=== PATIENT | female | born 1985 | race Caucasian/White ===

== ENCOUNTER 2021-05-29 06:28 | Emergency (ER) | payer OTHER ==
[~2021-05-29] VITALS: Ht 152.4 cm; Wt 68.0 kg
[2021-05-29 06:36] VITALS: BP 143/100
--- NOTE | 2021-05-29 06:39 | NUR ---
John miller in [facility] - 05/29/21 at 0640 by CHANI PT TAKEN TO BED 11
--- NOTE | 2021-05-29 06:40 | NUR ---
PT TAKEN TO ER BED 11
[2021-05-29] MEDS ORDERED: MORPHINE SULFATE 4 MG/ML SYR IM ONE (06:45)
--- NOTE | 2021-05-29 06:45 | NUR ---
RECEIVED IN BED 11 WITH C/O DENTAL PAIN SINCE LAST NIGHT, PT UNABLE TO IDENTIFY LOCATION. IS TEARFUL, "THIS IS THE WORST TOOTH PAIN I HAVE EVER HAD"
--- NOTE | 2021-05-29 06:45 | NUR ---
Dr. Vega examining patient.
[2021-05-29] MEDS ORDERED: IBUP-2213 PO (06:51)
[2021-05-29] MEDS ORDERED: ACET-8386 PO (06:51)
[2021-05-29 06:55] VITALS: BP 143/100
--- NOTE | 2021-05-29 06:55 | NUR ---
Patient discharged with v/s stable. Written and verbal after care instructions given and explained. Patient alert, oriented and verbalized understanding of instructions. Ambulatory with steady gait. All questions addressed prior to discharge. ID band removed. Patient advised to follow up with PMD. Rx of VICODIN, IBUPROFEN given. Patient educated on indication of medication including possible reaction and side effects. Opportunity to ask questions provided and answered.
== END 2021-05-29 06:55 | disposition home or self-care (01) ==
LOC: MED 06:28
DX: K08.89 Other specified disorders of teeth and supporting structures (principal)
CPT/HCPCS: 96372; 99283; J2270

== ENCOUNTER 2022-03-07 20:04 | Emergency (ER) | payer OTHER ==
[~2022-03-07] VITALS: Ht 152.4 cm; Wt 68.9 kg
[~2022-03-07 20:04] MED LIST: ACET-8386 PO; IBUP-2213 PO
[2022-03-07 20:29] VITALS: BP 137/77
--- NOTE | 2022-03-07 22:46 | NUR ---
Patient ambulated to bed 12.
[2022-03-07 22:57] LABS: APPEARANCE,URINE CLEAR (CLEAR); BILIRUBIN,URINE NEGATIVE (NEGATIVE); BLOOD, URINE 3+ (NEGATIVE); COLOR,URINE YELLOW (YELLOW); LEUKOCYTE ESTERASE ,URINE NEGATIVE (NEGATIVE); NITRITE, URINE NEGATIVE (NEGATIVE); UGLUCOSE NEGATIVE (NEGATIVE)
[2022-03-07 23:00] LABS: RBC,URINE >20 (MANY) /HPF (0-5); WBC,URINE 0-5 /HPF (0-5)
[2022-03-07 23:29] VITALS: BP 137/77
--- NOTE | 2022-03-07 23:29 | NUR ---
PT CAME TO NURSES STATION AND SAID SHE WAS LEAVING. PT LWBS
--- NOTE | 2022-03-07 23:30 | NUR ---
PATIENT LEFT WITHOUT BEING SEEN BY DR. Carver. NO FURTHER CARE PROVIDED FOR PATIENT.
== END 2022-03-07 23:30 | disposition left against medical advice (07) ==
LOC: MED 20:04
DX: M54.50 Low back pain, unspecified (principal); Z53.21 Procedure and treatment not carried out due to patient leaving prior to being seen by health care provider
CPT/HCPCS: 81001; 81025; 99281

== ENCOUNTER 2022-05-03 00:49 | Emergency (ER) | payer OTHER ==
[2022-05-03] MEDS ORDERED: BACTO TP (01:08)
--- NOTE | 2022-05-03 02:03 | NUR ---
Patient discharged with v/s stable. Written and verbal after care instructions given and explained. Patient alert, oriented and verbalized understanding of instructions. Ambulatory with steady gait. All questions addressed prior to discharge. ID band removed. Patient advised to follow up with PMD. Rx of MUPIROCIN given. Patient educated on indication of medication including possible reaction and side effects. Opportunity to ask questions provided and answered. DX: FOOT CONTUSION
== END 2022-05-03 02:03 | disposition home or self-care (01) ==
LOC: MED 00:49
DX: S90.922A Unspecified superficial injury of left foot, initial encounter (principal); X58.XXXA Exposure to other specified factors, initial encounter; Y93.89 Activity, other specified; Y92.89 Other specified places as the place of occurrence of the external cause; Y99.8 Other external cause status
CPT/HCPCS: 99283

== ENCOUNTER 2022-12-21 22:46 | Emergency (ER) | payer OTHER ==
[~2022-12-21] VITALS: Ht 152.4 cm; Wt 68.0 kg
[~2022-12-21 22:46] MED LIST changes: -ACET-8386 PO; +ACET-8905 PO; +BACTO TP
[2022-12-21 22:59] VITALS: BP 140/92; PULSE 102; RESP 24; TEMP 98.1; O2SAT 100
--- NOTE | 2022-12-21 23:30 | NUR ---
MD Tracy assessing pt.
[2022-12-21 23:45] LABS: BASOPHILS # (AUTO) 0.1 K/uL (0.00-0.22); BASOPHILS % (AUTO) 0.9 % (0.0-2.0); EOSINOPHILS # (AUTO) 0.2 K/uL (0-0.4); EOSINOPHILS % (AUTO) 2.2 % (0.0-4.0); HEMATOCRIT 38.8 % (36-48); HEMOGLOBIN 12.9 g/dL (12.0-16.0); LYMPHOCYTES # (AUTO) 2.5 K/uL (2.5-16.5); LYMPHOCYTES % (AUTO) 35.5 % (20.5-51.1); MEAN CORPUSCULAR HEMOGLOBIN 29 pg (27-31); MEAN CORPUSCULAR HGB CONC 33 g/dL (33-37); MEAN CORPUSCULAR VOLUME 87.7 fL (80-94); MONOCYTES # (AUTO) 0.6 K/uL (0.8-1.0); NEUTROPHILS # (AUTO) 3.8 K/uL (1.8-7.7); NEUTROPHILS % (AUTO) 53.4 % (42.2-75.2); PLATELET COUNT (AUTO) 352 K/uL (140-450); RED BLOOD CELL COUNT(AUTO) 4.43 MIL/uL (4.20-5.40); WHITE BLOOD COUNT (AUTO) 7.1 K/uL (4.8-10.8)
[2022-12-22 00:34] LABS: ALBUMIN 3.9 g/dL (3.4-5.0); ANION GAP 12.5 (8-16); ASPARTATE AMINOTRANSFERASE 27 U/L (15-37); CARBON DIOXIDE 27.8 mmol/L (21-32); CHLORIDE 104 mmol/L (98-107); CREATININE 0.9 mg/dL (0.6-1.3); GFR ARICAN-AMERICAN 90 mL/min (>90); GLUCOSE 100 mg/dL (74-106); LIPASE 185 U/L (73-393); POTASSIUM 4.3 mmol/L (3.5-5.1); SODIUM SERUM 140 mmol/L (136-145); TOTAL BILIRUBIN 0.2 mg/dL (0.0-1.0); UREA NITROGEN, BLOOD 11 mg/dL (7-18)
[2022-12-22] MEDS ORDERED: IBUPROFEN 600 MG TAB PO ONE (00:50)
[2022-12-22] MEDS ORDERED: IBUP-2213 PO (01:01)
--- NOTE | 2022-12-22 01:15 | NUR ---
Pt medicated as ordered; tolerated well.
[2022-12-22 01:24] VITALS: BP 134/89; PULSE 97; RESP 22; TEMP 98.1; O2SAT 100
--- NOTE | 2022-12-22 01:26 | NUR ---
Patient discharged with v/s stable. Written and verbal after care instructions given and explained. Patient alert, oriented and verbalized understanding of instructions. All questions addressed prior to discharge. ID band removed. Patient advised to follow up with PMD. Rx of Ibuprofen sent to preferred pharmacy. Patient educated on indication of medication including possible reaction and side effects. Opportunity to ask questions provided and answered.
== END 2022-12-22 01:26 | disposition home or self-care (01) ==
LOC: MED 22:46
DX: R07.89 Other chest pain (principal); M79.18 Myalgia, other site; F41.9 Anxiety disorder, unspecified; Z98.890 Other specified postprocedural states; Z90.49 Acquired absence of other specified parts of digestive tract; Z79.899 Other long term (current) drug therapy; Z79.1 Long term (current) use of non-steroidal anti-inflammatories (NSAID); Z79.2 Long term (current) use of antibiotics
CPT/HCPCS: 36415; 71045; 80053; 83690; 84484; 85025; 85379; 93005; 99285

== ENCOUNTER 2023-02-26 00:57 | Emergency (ER) | payer OTHER ==
[~2023-02-26] VITALS: Ht 152.4 cm; Wt 77.1 kg
[2023-02-26 01:17] VITALS: BP_SYST 72; PULSE 72; RESP 16; TEMP 97.4; O2SAT 100
== END 2023-02-26 04:22 | disposition left against medical advice (07) ==
LOC: MED 00:57
DX: R51.9 Headache, unspecified (principal); Z53.21 Procedure and treatment not carried out due to patient leaving prior to being seen by health care provider
CPT/HCPCS: 99281

== ENCOUNTER 2023-02-28 17:26 | Emergency (ER) | payer OTHER ==
[~2023-02-28] VITALS: Ht 162.6 cm; Wt 70.8 kg
[2023-02-28 17:47] VITALS: BP 123/93; PULSE 104; RESP 17; TEMP 97.4; O2SAT 98
== END 2023-02-28 19:56 | disposition home or self-care (01) ==
LOC: MED 17:26
DX: S06.0X0A Concussion without loss of consciousness, initial encounter (principal); X58.XXXA Exposure to other specified factors, initial encounter; Y93.89 Activity, other specified; Y92.89 Other specified places as the place of occurrence of the external cause; Y99.8 Other external cause status
CPT/HCPCS: 90471; 90715; 99283

== ENCOUNTER 2023-11-16 16:51 | Emergency (ER) | payer OTHER ==
[~2023-11-16] VITALS: Ht 152.4 cm; Wt 72.6 kg
[2023-11-16 17:15] VITALS: BP 119/83; PULSE 99; RESP 18; TEMP 97.3; O2SAT 100
[2023-11-16 18:32] LABS: APPEARANCE,URINE CLEAR (CLEAR); BILIRUBIN,URINE NEGATIVE (NEGATIVE); BLOOD, URINE TRACE-I (NEGATIVE); COLOR,URINE YELLOW (YELLOW); LEUKOCYTE ESTERASE ,URINE 1+ (NEGATIVE); NITRITE, URINE POSITIVE (NEGATIVE); PROTEIN,URINE NEGATIVE (NEGATIVE); UGLUCOSE NEGATIVE (NEGATIVE); UROBILINOGEN,URINE 0.2 EU/dL (0.2 - 1)
[2023-11-16 18:44] LABS: BACTERIA,URINE >30 (MANY) /HPF (None Seen); RBC,URINE 0-5 /HPF (0-5); WBC,URINE 16-25 (MOD) /HPF (0-5)
[2023-11-16 18:45] LABS: MUCUS,URINE None Seen /LPF (None Seen); SQUAMOUS EPITHELIAL CELL,UR 4-10 (MOD) /LPF (0-3 (FEW))
[2023-11-16 19:02] LABS: BASOPHILS # (AUTO) 0.1 K/uL (0.00-0.22); BASOPHILS % (AUTO) 0.9 % (0.0-2.0); EOSINOPHILS # (AUTO) 0.1 K/uL (0-0.4); EOSINOPHILS % (AUTO) 1.3 % (0.0-4.0); HEMATOCRIT 42.8 % (36-48); HEMOGLOBIN 14.2 g/dL (12.0-16.0); LYMPHOCYTES # (AUTO) 1.7 K/uL (2.5-16.5); LYMPHOCYTES % (AUTO) 24.7 % (20.5-51.1); MEAN CORPUSCULAR HEMOGLOBIN 29 pg (27-31); MEAN CORPUSCULAR HGB CONC 33 g/dL (33-37); MEAN CORPUSCULAR VOLUME 88.2 fL (80-94); MONOCYTES # (AUTO) 0.6 K/uL (0.8-1.0); MONOCYTES % (AUTO) 8.8 % (1.7-9.3); NEUTROPHILS # (AUTO) 4.5 K/uL (1.8-7.7); NEUTROPHILS % (AUTO) 64.3 % (42.2-75.2); PLATELET COUNT (AUTO) 337 K/uL (140-450); RED BLOOD CELL COUNT(AUTO) 4.85 MIL/uL (4.20-5.40); RED CELL DISTRIBUTION WIDTH 13.8 % (11.6-13.7)
[2023-11-16 19:19] LABS: ANION GAP 15.9 (8-16); CALCIUM 9.3 mg/dL (8.5-10.1); CARBON DIOXIDE 25.1 mmol/L (21-32); CREATININE 0.9 mg/dL (0.6-1.3)
[2023-11-16 19:23] LABS: ALBUMIN 4.1 g/dL (3.4-5.0); BILIRUBIN,DIRECT 0.1 mg/dL (0.0-0.3); TOTAL BILIRUBIN 0.6 mg/dL (0.0-1.0); TOTAL PROTEIN, SERUM 8.7 g/dL (6.4-8.2)
[2023-11-16] MEDS ORDERED: NITR100C7 PO (19:24)
== END 2023-11-16 19:28 | disposition home or self-care (01) ==
LOC: MED 16:51
DX: N39.0 Urinary tract infection, site not specified (principal); Z79.899 Other long term (current) drug therapy
CPT/HCPCS: 36415; 80048; 80076; 81001; 81025; 83690; 85025; 87086; 87186; 99283

== ENCOUNTER 2024-03-04 16:43 | Emergency (ER) | payer OTHER ==
[~2024-03-04] VITALS: Ht 152.4 cm; Wt 73.0 kg
[~2024-03-04 16:43] MED LIST changes: +NITR100C7 PO
[2024-03-04 17:04] VITALS: BP 115/80; PULSE 96; RESP 18; TEMP 97.8; O2SAT 100
[2024-03-04] MEDS ORDERED: HYDR25CA1 PO (18:18)
[2024-03-04 18:44] VITALS: BP 112/82; PULSE 91; RESP 18; TEMP 98.3; O2SAT 100
--- NOTE | 2024-03-04 18:44 | NUR ---
Patient discharged with v/s stable. Written and verbal after care instructions given and explained. Patient alert, oriented and verbalized understanding of instructions. Ambulatory with steady gait. All questions addressed prior to discharge. ID band removed. Patient advised to follow up with PMD. Rx of VISTARIL given. Opportunity to ask questions provided and answered. WORK NOTE PROVIDED
--- NOTE | 2024-03-04 18:50 | NUR ---
Chart checked and completed. The patient's care was reviewed and supervised by KRISTI ROJAS RN.
== END 2024-03-04 18:44 | disposition home or self-care (01) ==
LOC: MED 16:43
DX: F41.0 Panic disorder [episodic paroxysmal anxiety] (principal); R03.0 Elevated blood-pressure reading, without diagnosis of hypertension; F32.9 Major depressive disorder, single episode, unspecified; Z79.899 Other long term (current) drug therapy
CPT/HCPCS: 99283